=== PATIENT | male | born 1945 | race Caucasian/White ===

== ENCOUNTER 2016-12-10 09:37 | Inpatient (IN) | payer MEDICARE ==
[2016-12-10 10:18] LABS: HEMOGLOBIN 12.3 g/dL (14.1-18.0); LYMPH # 1.7 K/mm3 (0.7-4.5); LYMPH % 17.9 % (10-50)
[2016-12-10 10:23] LABS: BUN 43 mg/dL (7-18)
[2016-12-10 10:24] LABS: GFR (ESTIMATED) 33 ML/MIN (>60)
--- NOTE | 2016-12-10 13:12 | RADIOLOGY REPORT PS360 ---
CARDIAC CATHETERIZATION DATE OF CATHETERIZATION:12/10/2016 12:22 PM PROCEDURES: 1. Left heart catheterization 2. Left ventriculogram 3. Selective coronary angiogram 4. Selective engagement of the left internal mammary artery 5. Selective engagement of the saphenous vein graft to the circumflex artery 6. Selective engagement of the saphenous vein graft to the right coronary 7. Bilateral selective renal angiogram INDICATION FOR TEST: 1. History of coronary artery bypass surgery 2. Ischemically myopathy 3. Class IV angina pectoris 4. 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 Chronic renal failure creatinine 2.0 6. Suspect renal artery stenosis based on diffuse coronary artery vasculopathy Informed consent was obtained prior to the procedure. COMPLICATIONS: None ESTIMATED BLOOD LOSS: Less than 10 ml. TECHNIQUE: One percent lidocaine was used to anesthetize the right groin. The right femoral artery was accessed via the Seldinger technique. A 4 Greenlandic 7 Greenlandic sheath were placed in the artery vein respectively. A JL 4 JR4 catheter were used for the procedure. The JR4 catheter was used to cannulate the left internal mammary artery as well as left heart catheterization and left ventriculogram. The JR4 catheter was used to perform right coronary angiography. Because of patient's creatinine of 2.0 diffuse vasculopathy is likelihood for renal artery stenosis was high therefore selective engagement of each renal artery with angiography was performed. An Amplatz left catheter was used to cannulate the saphenous to the circumflex artery while an AR2 catheter was used to cannulate the saphenous vein graft to the right coronary artery. 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 I did not want to bang the [place]-Jose catheter into the ventricle and possibly precipitated and arrhythmia or further heart block in this particular facility which has limited additional hemodynamics support. At this point it was decided to take patient off the table transfer him to the intensive care unit with plans being made to transfer patient immediately to [facility] for further evaluation. I see no reason why this gentleman is not a candidate for heart transplantation with possible interim LVAD placement. 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 I will defer to the manager talent and transplant team as to whether or not revascularization of the saphenous vein graft to this small vasculopathic right coronary artery will be beneficial. ANGIOGRAPHIC RESULTS: 1. The left main artery is normal 2. The left anterior descending artery has ostial 50% calcified stenoses followed by additional 70% Roxanol stenosis. The vessel was then subtotally occluded after it gives rise to 3 septal perforators. 3. The circumflex artery is proximally occluded but does give rise to what appears to be a small collateral branch or possibly true [place] circumflex artery which is less than 1 mm diameter 4. The right coronary artery is proximally occluded 5. The ROMERO ventriculogram reveals severe left ventricular dilatation with severely reduced ejection fraction estimated at 15% 6. The left ventricular end-diastolic pressure is severely elevated at 30 mmHg 7. The left internal mammary artery is a widely patent graft which makes its anastomosis on to a diffusely calcified diseased LAD which is subtotally occluded. One solitary septal equipment monitor phototypesetting is identified which is being fed by the YOUNG graft 8. The saphenous vein graft to the right coronary artery has a proximal 90% stenosis followed by an eccentric 50-60% fingerlike calcific stenosis. The remaining graft is moderate to severely diffusely diseased. The makes its anastomosis on to a less than 1 mm severely diseased posterior descending artery which then backfills a small posterior lateral ventricular branch also less than 1 mm diameter 9. The saphenous vein graft to the obtuse marginal artery is a widely patent graft. It is a skip graft which appears to make its first anastomosis on to a first diagonal artery which is occluded at the diagonal vessel and then skips over to the distal obtuse marginal artery. Right at the anastomosis of the saphenous vein graft to the obtuse marginal artery there is a focal 90% stenosis. This is a 2 mm diameter anastomosis. 10. The left renal artery is singular and normal 11. Right renal artery singular and normal IMPRESSION: 1. Critical disease in the saphenous vein graft supplying the severely diffusely diseased vasculopathic small right coronary artery 2. Critical disease in the saphenous vein graft supplying the obtuse marginal artery right at the anastomosis 3. Patent YOUNG graft supplying and occluded LAD which supplies a solitary less than 1 mm septal equipment monitor phototypesetting 4. Patent proximal LAD supplying 3 septal perforators with no diagonal artery patency 5. [place] occlusion of the right coronary artery 6. [place] occlusion of the circumflex artery 7. Severe left ventricular dilatation with severely reduced ejection fraction 8. Normal renal arteries PLAN: 1. Patient will be transferred urgently to [facility]. 2. If patient is going to undergo percutaneous revascularization he should probably have left ventricular assist device prophylactically placed or have additional supportive hemodynamic care available. This patient is much to high risk to undergo revascularization at this facility 3. I see no reason why this gentleman should not be a heart transplant candidate. Although stenting the saphenous vein graft to the circumflex artery and right coronary artery may provide some transient relief I believe his long-term morbidity mortality remains exceedingly high. I will defer to [facility] to determine if he is a left ventricular assist device candidate for heart transplant candidate. 4. Patient has renal failure which is probably in part related to his cardiomyopathy. I would recommend nephrology workup and [facility] as well 5. I discussed the case with Dr. Pantera Whitt and he has accepted the patient and currently making regions for transportation
--- NOTE | 2016-12-10 13:12 | RADIOLOGY REPORT PS360 ---
CARDIAC CATHETERIZATION DATE OF CATHETERIZATION:12/10/2016 12:22 PM PROCEDURES: 1. Left heart catheterization 2. Left ventriculogram 3. Selective coronary angiogram 4. Selective engagement of the left internal mammary artery 5. Selective engagement of the saphenous vein graft to the circumflex artery 6. Selective engagement of the saphenous vein graft to the right coronary 7. Bilateral selective renal angiogram INDICATION FOR TEST: 1. History of coronary artery bypass surgery 2. Ischemically myopathy 3. Class IV angina pectoris 4. 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 Chronic renal failure creatinine 2.0 6. Suspect renal artery stenosis based on diffuse coronary artery vasculopathy Informed consent was obtained prior to the procedure. COMPLICATIONS: None ESTIMATED BLOOD LOSS: Less than 10 ml. TECHNIQUE: One percent lidocaine was used to anesthetize the right groin. The right femoral artery was accessed via the Seldinger technique. A 4 Swedish 7 Swedish sheath were placed in the artery vein respectively. A JL 4 JR4 catheter were used for the procedure. The JR4 catheter was used to cannulate the left internal mammary artery as well as left heart catheterization and left ventriculogram. The JR4 catheter was used to perform right coronary angiography. Because of patient's creatinine of 2.0 diffuse vasculopathy is likelihood for renal artery stenosis was high therefore selective engagement of each renal artery with angiography was performed. An Amplatz left catheter was used to cannulate the saphenous to the circumflex artery while an AR2 catheter was used to cannulate the saphenous vein graft to the right coronary artery. 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 I did not want to bang the [place]-Jose catheter into the ventricle and possibly precipitated and arrhythmia or further heart block in this particular facility which has limited additional hemodynamics support. At this point it was decided to take patient off the table transfer him to the intensive care unit with plans being made to transfer patient immediately to [facility] for further evaluation. I see no reason why this gentleman is not a candidate for heart transplantation with possible interim LVAD placement. 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 I will defer to the sales commissions analyst and transplant team as to whether or not revascularization of the saphenous vein graft to this small vasculopathic right coronary artery will be beneficial. ANGIOGRAPHIC RESULTS: 1. The left main artery is normal 2. The left anterior descending artery has ostial 50% calcified stenoses followed by additional 70% Roxanol stenosis. The vessel was then subtotally occluded after it gives rise to 3 septal perforators. 3. The circumflex artery is proximally occluded but does give rise to what appears to be a small collateral branch or possibly true picayune circumflex artery which is less than 1 mm diameter 4. The right coronary artery is proximally occluded 5. The ROMERO ventriculogram reveals severe left ventricular dilatation with severely reduced ejection fraction estimated at 15% 6. The left ventricular end-diastolic pressure is severely elevated at 30 mmHg 7. The left internal mammary artery is a widely patent graft which makes its anastomosis on to a diffusely calcified diseased LAD which is subtotally occluded. One solitary septal community education specialist is identified which is being fed by the YOUNG graft 8. The saphenous vein graft to the right coronary artery has a proximal 90% stenosis followed by an eccentric 50-60% fingerlike calcific stenosis. The remaining graft is moderate to severely diffusely diseased. The makes its anastomosis on to a less than 1 mm severely diseased posterior descending artery which then backfills a small posterior lateral ventricular branch also less than 1 mm diameter 9. The saphenous vein graft to the obtuse marginal artery is a widely patent graft. It is a skip graft which appears to make its first anastomosis on to a first diagonal artery which is occluded at the diagonal vessel and then skips over to the distal obtuse marginal artery. Right at the anastomosis of the saphenous vein graft to the obtuse marginal artery there is a focal 90% stenosis. This is a 2 mm diameter anastomosis. 10. The left renal artery is singular and normal 11. Right renal artery singular and normal IMPRESSION: 1. Critical disease in the saphenous vein graft supplying the severely diffusely diseased vasculopathic small right coronary artery 2. Critical disease in the saphenous vein graft supplying the obtuse marginal artery right at the anastomosis 3. Patent YOUNG graft supplying and occluded LAD which supplies a solitary less than 1 mm septal community education specialist 4. Patent proximal LAD supplying 3 septal perforators with no diagonal artery patency 5. [place] occlusion of the right coronary artery 6. [place] occlusion of the circumflex artery 7. Severe left ventricular dilatation with severely reduced ejection fraction 8. Normal renal arteries PLAN: 1. Patient will be transferred urgently to [facility]. 2. If patient is going to undergo percutaneous revascularization he should probably have left ventricular assist device prophylactically placed or have additional supportive hemodynamic care available. This patient is much to high risk to undergo revascularization at this facility 3. I see no reason why this gentleman should not be a heart transplant candidate. Although stenting the saphenous vein graft to the circumflex artery and right coronary artery may provide some transient relief I believe his long-term morbidity mortality remains exceedingly high. I will defer to [facility] to determine if he is a left ventricular assist device candidate for heart transplant candidate. 4. Patient has renal failure which is probably in part related to his cardiomyopathy. I would recommend nephrology workup and [facility] as well 5. I discussed the case with Dr. Pantera Whitt and he has accepted the patient and currently making regions for transportation
[2016-12-10 16:40] VITALS: BP 142/88
[2016-12-10 17:30] VITALS: BP 140/82
== END 2016-12-10 17:30 | disposition short-term general hospital (02) | DRG 287 ==
LOC: CATHLAB 09:37 → ICU 16:29
PROVIDERS: Internal Medicine
PROC: B2131ZZ Fluoroscopy of Multiple Coronary Artery Bypass Grafts using Low Osmolar Contrast (ICD-10-PCS; principal; 2016-12-10 13:30)
PROC: B2111ZZ Fluoroscopy of Multiple Coronary Arteries using Low Osmolar Contrast (ICD-10-PCS; principal; 2016-12-10 13:30)
PROC: B2151ZZ Fluoroscopy of Left Heart using Low Osmolar Contrast (ICD-10-PCS; principal; 2016-12-10 13:30)
PROC: B4181ZZ Fluoroscopy of Bilateral Renal Arteries using Low Osmolar Contrast (ICD-10-PCS; principal; 2016-12-10 13:30)
PROC: 4A023N7 Measurement of Cardiac Sampling and Pressure, Left Heart, Percutaneous Approach (ICD-10-PCS; principal; 2016-12-10 13:30)
DX: I25.119 Atherosclerotic heart disease of native coronary artery with unspecified angina pectoris (principal); I42.9 Cardiomyopathy, unspecified; I50.9 Heart failure, unspecified; I25.719 Atherosclerosis of autologous vein coronary artery bypass graft(s) with unspecified angina pectoris; Z95.1 Presence of aortocoronary bypass graft; N18.9 Chronic kidney disease, unspecified
CPT/HCPCS: C1725; C1769; C1894; J1644; Q9967

== ENCOUNTER 2017-02-05 08:26 | Day surgery (SDC) | payer MEDICARE ==
[~2017-02-05] VITALS: Ht 182.9 cm; Wt 113.4 kg
[2017-02-05 09:30] LABS: HEMOGLOBIN 12.1 g/dL (14.1-18.0); LYMPH # 1.9 K/mm3 (0.7-4.5); LYMPH % 24.3 % (10-50)
[2017-02-05 09:40] LABS: BUN 30 mg/dL (7-18); GFR (ESTIMATED) 50 ML/MIN (>60)
--- NOTE | 2017-02-05 13:16 | Anesthesia Record ---
Anesthesia Record Part I Total IV fluids: 700 EBL (ml): 20 Urine Output: 0 B/P: 136/70 % SaO2: 96 Pulse: 70 Resps: 16 Temp: 97.6 Patient is: Awake, Stable Stable to PACU at: 1310 at 1316
--- NOTE | 2017-02-05 13:17 | Anesthesia Record ---
Anesthesia Record Part II Discharge time: 1340 Destination: Same day surgery PACU nurse assessment review? Yes Patient is: Awake, Stable Anesthesia complications? No at 1318
--- NOTE | 2017-02-05 14:10 | RADIOLOGY REPORT PS360 ---
CHEST-PORTABLE COMPARISON: None HISTORY: Pacemaker placement TECHNIQUE: Portable upright chest FINDINGS: There is a left infraclavicular pacemaker noted with dual chamber electrodes both in the position. There is mild cardiomegaly however the vascularity is normal. I see no pneumonic infiltrate and there is no pneumothorax. IMPRESSION: Satisfactory placement of cardiac pacemaker, no acute chest pathology noted
--- NOTE | 2017-02-05 15:23 | RADIOLOGY REPORT PS360 ---
PACEMAKER/DEFIBRILLATOR COMPARISON: Portable upright chest same date HISTORY: Pacemaker insertion TECHNIQUE: Fluoroscopy FINDINGS: Fluoroscopic spot films initially show a guidewire in the left subclavian vein with follow-up spot film showing the cardiac electrodes in place. IMPRESSION: Satisfactory placement of left infraclavicular cardiac pacemaker
[2017-02-05 15:58] VITALS: BP 141/65
--- NOTE | 2017-02-11 16:23 | Operative Note ---
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 The fascia was lifted off the pectoralis muscle and digitally manipulated creating a pocket for the pacemaker. The patient was then placed in Trendelenburg position and the subclavian vein was accessed via the Selinger technique on 3 separate occasions. 3 wires were left into the subclavian vein. The right ventricular pacing shocking coil sheath was placed into the subclavian vein and under fluoroscopic guidance the right ventricular sensing pacing shocking coil was placed into the right ventricular apex and secured into place with a distal screw. After achieving excellent numbers the lead was then secured into place using 0 silk. The lead was secured to the fascia also with heavy silk suture. 9 [place]i sheath was placed in the left subclavian vein and under fluoroscopic guidance this was used to cannulate the coronary sinus. Coronary sinus. Tomography was performed which then allowed a choice PT wire to be placed distally in the posterior lateral branch there by allowing advancement of a left ventricular sensing pacing coil. After adequate thresholds were obtained this sheath was secured by 3-0 silk. The sheath was sewn in to the fascia. Prior to the right ventricular lead being secured into place the sheath was P all the way from the subclavian vein. Next the left ventricular coil sheath was placed into the left subclavian vein. Under fluoroscopic guidance the coronary sinus was cannulated and confirmed with an injection of contrast. An 014 wire was then placed distally in the inferior posterior segment of the left ventricle via the coronary sinus and the left ventricular lead was advanced. After achieving excellent thresholds and interrogation number's the sheath was then peeled away and the lead was then secured into place using silk suture. Following this the left ventricular coil was secured in place using heavy silk and also secured to the fascia. An additional 7 [place]i sheath was then placed over the existing wire and an atrial sensing pacing coil was placed in the right atrial appendage. After achieving excellent thresholds the sheath was peeled away and the lead was secured to the fascia using heavy silk. At this point the site under the left clavicle had a heavy using of blood from the 3 previous sheaths and patient's profound right heart failure. I held pressure using my thumb over the venotomy site and after several minutes and achieved complete hemostasis. After achieving hemostasis Ancef was used to flush the pocket and the 3 leads were attached to the TIER TRUCK DRIVER D generator. The generator was then secured into place via heavy silk suture. At this point Hannah the OR glass technician/installer then secured the subcutaneous and cutaneous layers. Patient was transferred to the postop holding area in stable condition Impression: Procedure performed: Pocket formation for biventricular pacemaker generator with cardiac resynchronization/defibrillator therapy Placement of atrial sensing pacing lead into the right atrial appendage Placement of ventricular sensing pacing shocking coil into the right ventricular apex Placement of left ventricular pacing sensing coil into the coronary sinus Permanent cardiac resynchronization therapy with a ICD implantation/ biventricular pacemaker Interrogation: Interrogation: P-wave measures 1.5 mV with lead impedance of 386. P-wave threshold 1.5 R wave greater than 12 mV R wave impedance 640 R wave threshold 0.75 Pulse width 0.5 LV lead impedance 800 threshold 0.5 pulse width 1.0 HV-40 Mode DDDR Defibrillator generator model number [id number] Serial number [id number] Atrial lead monitor number Model 2088 Tc/52 serial number [id number] Right Ventricular [place] lead model number [id number]/65 Right ventricular apex serial number [id number] Left Ventricular lead model number 1458QL/86 Left ventricular serial number [id number] Pacing parameters: Mode DDDR Base/Max Track 70/110 ICD rate cutoff VT-1 @ 150 bpm - monitor VT-2 @ 180 bpm - ATP X 3 36,40 VF @ 200 bpm- ATP W/C 36,40 No D/S at 10 volts Serial number: See above Plan: Plan: Post-op wound care at 1010
--- NOTE | 2017-02-11 16:23 | Operative Note ---
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 The fascia was lifted off the pectoralis muscle and digitally manipulated creating a pocket for the pacemaker. The patient was then placed in Trendelenburg position and the subclavian vein was accessed via the Selinger technique on 3 separate occasions. 3 wires were left into the subclavian vein. The right ventricular pacing shocking coil sheath was placed into the subclavian vein and under fluoroscopic guidance the right ventricular sensing pacing shocking coil was placed into the right ventricular apex and secured into place with a distal screw. After achieving excellent numbers the lead was then secured into place using 0 silk. The lead was secured to the fascia also with heavy silk suture. 9 [place]uvian sheath was placed in the left subclavian vein and under fluoroscopic guidance this was used to cannulate the coronary sinus. Coronary sinus. Tomography was performed which then allowed a choice PT wire to be placed distally in the posterior lateral branch there by allowing advancement of a left ventricular sensing pacing coil. After adequate thresholds were obtained this sheath was secured by 3-0 silk. The sheath was sewn in to the fascia. Prior to the right ventricular lead being secured into place the sheath was P all the way from the subclavian vein. Next the left ventricular coil sheath was placed into the left subclavian vein. Under fluoroscopic guidance the coronary sinus was cannulated and confirmed with an injection of contrast. An 014 wire was then placed distally in the inferior posterior segment of the left ventricle via the coronary sinus and the left ventricular lead was advanced. After achieving excellent thresholds and interrogation number's the sheath was then peeled away and the lead was then secured into place using silk suture. Following this the left ventricular coil was secured in place using heavy silk and also secured to the fascia. An additional 7 Peruvian sheath was then placed over the existing wire and an atrial sensing pacing coil was placed in the right atrial appendage. After achieving excellent thresholds the sheath was peeled away and the lead was secured to the fascia using heavy silk. At this point the site under the left clavicle had a heavy using of blood from the 3 previous sheaths and patient's profound right heart failure. I held pressure using my thumb over the venotomy site and after several minutes and achieved complete hemostasis. After achieving hemostasis Ancef was used to flush the pocket and the 3 leads were attached to the PROCESS SUPERVISOR D generator. The generator was then secured into place via heavy silk suture. At this point Hannah the OR security installation technician then secured the subcutaneous and cutaneous layers. Patient was transferred to the postop holding area in stable condition Impression: Procedure performed: Pocket formation for biventricular pacemaker generator with cardiac resynchronization/defibrillator therapy Placement of atrial sensing pacing lead into the right atrial appendage Placement of ventricular sensing pacing shocking coil into the right ventricular apex Placement of left ventricular pacing sensing coil into the coronary sinus Permanent cardiac resynchronization therapy with a ICD implantation/ biventricular pacemaker Interrogation: Interrogation: P-wave measures 1.5 mV with lead impedance of 386. P-wave threshold 1.5 R wave greater than 12 mV R wave impedance 640 R wave threshold 0.75 Pulse width 0.5 LV lead impedance 800 threshold 0.5 pulse width 1.0 HV-40 Mode DDDR Defibrillator generator model number [id number] Serial number [id number] Atrial lead monitor number Model 2088 Tc/52 serial number [id number] Right Ventricular Reynolds lead model number [id number]/65 Right ventricular apex serial number [id number] Left Ventricular lead model number 1458QL/86 Left ventricular serial number [id number] Pacing parameters: Mode DDDR Base/Max Track 70/110 ICD rate cutoff VT-1 @ 150 bpm - monitor VT-2 @ 180 bpm - ATP X 3 36,40 VF @ 200 bpm- ATP W/C 36,40 No D/S at 10 volts Serial number: See above Plan: Plan: Post-op wound care at 1010
== END 2017-02-05 15:51 | disposition home or self-care (01) ==
LOC: SDC 08:26
PROVIDERS: Internal Medicine
PROC: 0JH608Z Insertion of Defibrillator Generator into Chest Subcutaneous Tissue and Fascia, Open Approach (ICD-10-PCS; 2017-02-05)
PROC: 02H63KZ Insertion of Defibrillator Lead into Right Atrium, Percutaneous Approach (ICD-10-PCS; 2017-02-05)
PROC: 02HK3KZ Insertion of Defibrillator Lead into Right Ventricle, Percutaneous Approach (ICD-10-PCS; 2017-02-05)
PROC: 4B02XTZ Measurement of Cardiac Defibrillator, External Approach (ICD-10-PCS; 2017-02-05)
PROC: 0JH609Z Insertion of Cardiac Resynchronization Defibrillator Pulse Generator into Chest Subcutaneous Tissue and Fascia, Open Approach (ICD-10-PCS; 2017-02-05)
PROC: 02H43KZ Insertion of Defibrillator Lead into Coronary Vein, Percutaneous Approach (ICD-10-PCS; 2017-02-05)
PROC: 4B02XTZ Measurement of Cardiac Defibrillator, External Approach (ICD-10-PCS; principal; 2017-02-05 10:15)
DX: I25.5 Ischemic cardiomyopathy (principal); I50.20 Unspecified systolic (congestive) heart failure; Z45.02 Encounter for adjustment and management of automatic implantable cardiac defibrillator; I44.0 Atrioventricular block, first degree; E11.9 Type 2 diabetes mellitus without complications
CPT/HCPCS: C1769; C1777; C1882; C1894; C1898; J2405; Q9967